=== PATIENT | male | born 1940 | race Caucasian/White ===

== ENCOUNTER 2016-10-15 06:17 | Day surgery (SDC) | payer OTHER ==
--- NOTE | 2016-10-15 06:24 | PDHPUP ---
History & Physical Update H&P update statement: This history and physical update is based on an assessment of the patient which was completed after admission or registration (within 24 hours), but prior to the surgery/procedure.
[2016-10-15] MEDS ORDERED: ceFAZolin 2 GM/DEXTROSE 100 ML IV ONE (07:22)
[2016-10-15] MEDS ORDERED: LIDOCAINE 1% 2 ML INJ ID PRN (07:24)
[2016-10-15] MEDS ORDERED: LR 1,000 ML IV ONE (07:24)
[2016-10-15] MEDS ORDERED: BUPIVACAINE/EPI 0.5% 30 ML SDV ONE (07:29)
[2016-10-15] MEDS ORDERED: fentaNYL 100 MCG/2 ML INJ IVP SCH (07:45)
[2016-10-15] MEDS ORDERED: ROPIVACAINE HCL 150 MG/30 ML INJ ONE (07:54)
--- NOTE | 2016-10-15 08:09 | PDANEPAE ---
ANE History of Present Illness 76 year old male with shoulder OA and RCT for R shoulder surgery. ANE Past Medical History Past Medical History: 76 yo male with no recent URI/cough/fever. Chronic SOB due to COPD. Stable per pt. - Cardiovascular History Hx Hypertension: Yes Hx Arrhythmias: No Hx Chest Pain: No Hx Coronary Artery / Peripheral Vascular Disease: Yes Hx CHF / Valvular Disease: No Hx Palpitations: No Cardiovascular History Comment: HYPERLIPIDEMIA - Pulmonary History Hx COPD: Yes Hx Asthma/Reactive Airway Disease: No Hx Recent Upper Respiratory Infection: No Hx Oxygen in Use at Home: Yes O2 in Use at Home (L/minute): NOC O2 Hx Sleep Apnea: Yes Sleep Apnea Screening Result - Last Documented: Positive Pulmonary History Comment: PULMONARY HTN. 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 ENDOSCOPY & COLONOSCOPY. APPENDECTOMY. CHOLECYSTECTOMY. R HEMICOLECTOMY. OPEN HERNIA REPAIR 2013. TWISTED BOWEL REPAIR. 2016 L HAND SURG ANE Review of Systems Review of Systems: No URI/fever x2 weeks. - Exercise capacity METS (RN): 3 METS - Systems Constitutional: Reports: no symptoms Cardiac: Reports: no symptoms Respiratory: Reports: cough, shortness of breath ANE Patient History - Allergies Allergies/Adverse Reactions: gabapentin Allergy (Verified 09/17/16 13:52) - Home Medications Home medications: home medication list seen and reviewed Home Medications: ALBUTEROL SULFATE 03/21/15 [Last Taken 10/14/16 08:00] Acidophilus 03/21/15 [Last Taken 10/14/16] Ambien 5MG (RX) 03/21/15 [Last Taken 10/14/16 21:00] Doxazosin Mesylate 03/21/15 [Last Taken 10/14/16 21:00] Hydrochlorothiazide 03/21/15 [Last Taken 10/14/16 08:00] Lisinopril 03/21/15 [Last Taken 10/15/16 04:30] Magnesium 03/21/15 [Last Taken 10/14/16 21:00] Metoprolol Succinate 03/21/15 [Last Taken 10/15/16 04:30] Nexium 03/21/15 [Last Taken 10/14/16 08:00] Proctozone 03/21/15 [Last Taken 7 Months Ago] Vitamin C 500 mg (OTC) 03/21/15 [Last Taken 10/14/16 08:00] Vitamin D3 (OTC) 03/21/15 [Last Taken 10/14/16 08:00] Zantac 03/21/15 [Last Taken 10/14/16 21:00] Zocor 03/21/15 [Last Taken 10/14/16 21:00] Advair Hfa 115-21 Mcg Inhaler 09/17/16 [Last Taken 10/15/16 04:30] Alrex 09/17/16 [Last Taken 10/14/16 08:00] Aspirin 09/17/16 [Last Taken 10/05/16] Herbals/Supplements -Info Only 09/17/16 [Last Taken 10/14/16 08:00] Sildenafil Citrate 09/17/16 [Last Taken 10/14/16 21:00] Voltaren Gel (*) 09/17/16 [Last Taken 10/14/16 08:00] - NPO status NPO Since - Liquids (Date): 10/15/16 NPO Since - Liquids (Time): 04:30 NPO Since - Solids (Date): 10/14/16 NPO Since - Solids (Time): 19:00 - Anes Hx Anes Hx: no prior problems - Smoking Hx Smoking Status: Former smoker Marijuana use: No - Alcohol Use Alcohol Use: Rarely - Family Anes Hx Family Anes Hx: neg - N/A Family Hx Anesthesia Complications: NEG ANE Labs/Vital Signs - Labs - CBC WBC: reviewed from earlier in September, WNL - Labs - BMP Sodium: reviewed from earlier in September, WNL - Vital Signs Blood Pressure: 128/52 Heart Rate: 65 Respiratory Rate: 20 O2 Sat (%): 90 Height: 175.26 cm Weight: 93.894 kg ANE Physical Exam - Airway Mallampati Score: Class 2 Mouth exam: normal dental/mouth exam - Pulmonary Pulmonary: rhonchi - Cardiovascular Cardiovascular: regular rate and rhythym (muffled) - ASA Status ASA Status: III ANE Anesthesia Plan Anesthesia Plan: GA w LMA Regional Anesthesia: interscalene BP NB
[2016-10-15] MEDS ORDERED: PROPOFOL/EMULSION 500 MG/50 ML BOTTLE IV ONE (08:45)
[2016-10-15] MEDS ORDERED: LIDOCAINE 2% 5 ML SDV ONE (08:45)
[2016-10-15] MEDS ORDERED: DEXAMETHASONE 4 MG/ML VIAL ONE ×2 (08:45)
[2016-10-15] MEDS ORDERED: ACETAMINOPHEN 500 MG TAB PO PRN (10:10)
[2016-10-15] MEDS ORDERED: ENALAPRILAT DIHYDRATE 1.25 MG/ML VIAL IVP PRN (10:10)
[2016-10-15] MEDS ORDERED: OXYCODONE/APAP 5/325 TAB PO PRN ×2 (10:10→10:18)
[2016-10-15] MEDS ORDERED: PROMETHAZINE HCL 25 MG/ML INJ IVP PRN (10:10)
[2016-10-15] MEDS ORDERED: ONDANSETRON 4 MG/2 ML VIAL IVP PRN ×2 (10:10→10:18)
[2016-10-15] MEDS ORDERED: fentaNYL 100 MCG/2 ML INJ IVP PRN (10:10)
[2016-10-15] MEDS ORDERED: NALOXONE HCL 0.4 MG/ML INJ IVP PRN ×2 (10:10→10:12)
[2016-10-15] MEDS ORDERED: ALBUTEROL 3 ML DEYVIAL IH PRN (10:10)
[2016-10-15] MEDS ORDERED: ONDANSETRON DISINTEGRATING 4 MG TAB PO PRN (10:18)
[2016-10-15 10:49] VITALS: PULSE 63
[2016-10-15 11:23] VITALS: RESP 15
--- NOTE | 2016-10-15 11:27 | POSTANESTH ---
Post Anesthetic Evaluation Cardiovascular Status: Normal, Stable Respiratory Status: Normal, Stable Level of Consciousness/Mental Status: Can Participate in Eval, Alert and Oriented Pain Control: Adequate, Prn Tx Ordered (R UE numb from ISB) Nausea/Vomiting Control: Adequate, Prn Tx Ordered Complications Possibly Related to Anesthesia: None Noted
[2016-10-15 11:45] VITALS: TEMP 97.9
[2016-10-15 13:54] VITALS: BP 155/62; O2SAT 92
--- NOTE | 2016-10-21 10:14 | GOP ---
[f rep st] OPERATIVE REPORT DATE OF OPERATION: 10/15/2016 SURGEON: Oj Mullen MD BIOPHYSICS SCIENTIST: Roshan Reynoso, PLASTER MOLDER, HOSIERY REPAIRER, bindery library technical assistant, who was a medical necessity for the entir ety of the case. PREOPERATIVE DIAGNOSIS: Right shoulder rotator cuff tear and impingement. POSTOPERATIVE DIAGNOSIS: Right shoulder rotator cuff tear and impingement. PROCEDURE PERFORMED: 1. Right shoulder arthroscopy with rotator cuff repair. 2. Arthroscopic subacromial decompression. 3. Arthroscopic limited labral debridement. FINDINGS: SPECIMENS: To Pathology, none. INDICATIONS: The patient is a 76-year-old gentleman who has persistent pain, limitation in his func tion secondary to rotator cuff tearing and impingement. He has failed all attempts at conservative management. I have, therefore, recommended operative intervention with rotator cuff repair, subacro mial decompression, labral debridement, and other procedures as indicated. He understood the risks, benefits, alternatives, and wished to proceed. Written consent was signed and placed in patient's chart. DESCRIPTION OF PROCEDURE: The patient was identified in the preanesthesia area. The right shoulder clearly demarcated as the operative site with indelible marker. He was given 2 g of Ancef intraven ously en route to the operative suite. In the OR, general endotracheal anesthesia was administered. Attention was turned to the right shoulder which was sterilely prepped and draped in the usual fas hion. Appropriate time-out procedure had been carried out. He had been given an interscalene block by Anesthesia for postoperative analgesia. Standard anterior, posterior and lateral incisions were made for the arthroscopic portals to the shoulder and diagnostic arthroscopy ensued. The articular surface of the glenoid demonstrated grade 1 softening. The humeral head was intact with several sm all areas of grade 2 chondral changes. The labrum was grossly frayed throughout and was debrided in a limited fashion. The biceps was still stable and anchored to the superior labrum. This was debr ided in a limited fashion as well. The inferior axillary recess was free of any loose or foreign de bris. The rotator cuff demonstrated a 2 cm anterior-posterior and medial-lateral width tear across the distal anterior supraspinatus and the upper subscapularis demonstrated partial thickness fraying . The subscapularis was debrided. The supraspinatus was tagged with a #1 PDS suture. The [facility] was then introduced into a subacromial position. Complete bursectomy was performed. There was marked impingement and a subacromial decompression was performed with an oscillating bur. The rotat or cuff was cleaned to a clean and stable edge. A bony footprint was created using a total of 2 Bio -SwiveLock anchors, a FiberLink, 2 FiberTapes. The rotator cuff was repaired to the bony footprint and secured. This was visualized with full internal, external rotation. All particulate debris was withdrawn. The portal sites were then closed using 4-0 nylon suture. The shoulder instilled with 20 cc of 0.5% Marcaine with epinephrine. A sterile compressive dressing was applied. The patient w as awakened, extubated, taken to recovery room in good, stable condition. TOTAL TOURNIQUET TIME: None. COMPLICATIONS: None. IMPLANTS: Two Bio-SwiveLock anchors and sutures as above. DISPOSITION: To the recovery room, then home. He will follow standard rotator cuff recovery. /[id number]/MODL
== END 2016-10-15 13:30 | disposition home or self-care (01) ==
LOC: FSGY 06:17 → UNDOADMIN 10:18 → FSGY 13:30
PROVIDERS: ATTEND Orthopaedic Surgery
PROC: 0LQ14ZZ Repair Right Shoulder Tendon, Percutaneous Endoscopic Approach (ICD-10-PCS; principal; 2016-10-15 08:30)
PROC: 0MN14ZZ Release Right Shoulder Bursa and Ligament, Percutaneous Endoscopic Approach (ICD-10-PCS; principal; 2016-10-15 08:30)
PROC: 0MB14ZZ Excision of Right Shoulder Bursa and Ligament, Percutaneous Endoscopic Approach (ICD-10-PCS; principal; 2016-10-15 08:30)
DX: M75.121 Complete rotator cuff tear or rupture of right shoulder, not specified as traumatic (principal); M19.011 Primary osteoarthritis, right shoulder; J44.9 Chronic obstructive pulmonary disease, unspecified; I10 Essential (primary) hypertension; K21.9 Gastro-esophageal reflux disease without esophagitis; G47.30 Sleep apnea, unspecified; I27.2 Other secondary pulmonary hypertension; E66.8 Other obesity; Z87.891 Personal history of nicotine dependence
CPT/HCPCS: C1713; J0171; J0690; J1100; J2704; J2795; J3010

== ENCOUNTER 2017-02-19 10:59 | Emergency (ER) | payer OTHER ==
--- NOTE | 2017-02-19 11:26 | CPEKG ---
Heart Rate: 79 RR Interval: 759 P-R Interval: 164 QRSD Interval: 142 QT Interval: 428 QTC Interval: 491 P [place]: 70 QRS [place]: 23 T Wave [place]: 106 EKG Severity - ABNORMAL ECG - EKG Impression: SINUS RHYTHM EKG Impression: LEFT BUNDLE BRANCH BLOCK Electronically Signed By: Keena Mehta 19-Feb-2017 14:37:43
--- NOTE | 2017-02-19 11:33 | EDPHY ---
H & P Time Seen by Provider: 02/19/17 11:16 HPI/ROS: CHIEF COMPLAINT: Dizziness HISTORY OF PRESENT ILLNESS: 76-year-old male presents with dizziness. 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 Since the procedure, he has been dizzy. The dizziness is described as feeling off balance with ambulation. He stopped taking the new medications prescribed, including Tylenol with codeine and sucralfate. However he continues to be dizzy. He has a history of vertigo, but this does not feel similar. He has no room spinning sensation and does not feel like he might faint. No recent head or neck trauma. No chest pain, shortness of breath or palpitations. REVIEW OF SYSTEMS: Constitutional: No fever, no chills Eyes: No visual changes ENT: No sore throat Respiratory: No cough, no shortness of breath Cardiac: No chest pain Gastrointestinal: No nausea, no vomiting, no abdominal pain Genitourinary: no dysuria Musculoskeletal: No leg pain or swelling Skin: No rash Neurological: No headache, no numbness, no weakness Psychiatric: No depression Past Medical/Surgical History: Jackson's esophagus COPD Hypertension TIA Social History: No recent alcohol Smoking Status: Former smoker Physical Exam: General Appearance: Alert, pleasant Eyes: Pupils equal and round, no conjunctival pallor or injection a few beats of horizontal nystagmus with leftward gaze ENT, Mouth: Mucous membranes moist Neck: Normal inspection Respiratory: Lungs are clear to auscultation Cardiovascular: Regular rate and rhythm Gastrointestinal: Abdomen is soft and nontender Neurological: Alert, oriented x3, cranial nerves II through XII intact, motor 5 /5, sensory intact to light touch, finger to nose testing normal Skin: Warm and dry Extremities: Nontender, no pedal edema Psychiatric: Mood and affect normal Constitutional: Initial Vital Signs Temperature (C) 36.3 C 02/19/17 11:06 Heart Rate 84 02/19/17 11:06 Respiratory Rate 18 02/19/17 11:06 Blood Pressure 140/52 H 02/19/17 11:06 O2 Sat (%) 93 02/19/17 11:06 O2 Delivery Mode Room Air Allergies/Adverse Reactions: gabapentin Allergy (Verified 02/19/17 11:04) shellfish derived Allergy (Verified 02/19/17 11:04) Home Medications: Medication Instructions Recorded ALBUTEROL SULFATE 03/21/15 Acidophilus 03/21/15 Ambien 5MG (RX) 03/21/15 Doxazosin Mesylate 03/21/15 Hydrochlorothiazide 03/21/15 Lisinopril 03/21/15 Magnesium 03/21/15 Metoprolol Succinate 03/21/15 Nexium 03/21/15 Proctozone 03/21/15 Vitamin C 500 mg (OTC) 03/21/15 Vitamin D3 (OTC) 03/21/15 Zantac 03/21/15 Zocor 03/21/15 Advair Hfa 115-21 Mcg Inhaler 09/17/16 Alrex 09/17/16 Aspirin 09/17/16 Herbals/Supplements -Info Only 09/17/16 Sildenafil Citrate 09/17/16 Voltaren Gel (*) 09/17/16 Sucralfate 02/19/17 Medical Decision Making - Diagnostics EKG Interpretation: EKG interpreted by me reveals normal sinus rhythm, rate of 89, left bundle branch block. Imaging Results: Head CT 02/19/17 11:34 Impression: 1. Minimal atrophy. 2. No acute hemorrhage, hydrocephalus, or mass effect. 3. Cerebrovascular atherosclerosis. 4. No definite acute infarct. 5. Consider MRI of the brain, if there is continued clinical concern. Findings and recommendations discussed with Emergency Department physician, REINA WARD at 12:11 hour, 02/19/2017. Final report concurs with initial preliminary interpretation. Chest X-Ray 02/19/17 11:35 Impression: 1. Hyperexpanded lungs compatible with underlying COPD. 2. Stable fibrotic changes at the left base. ED Course/Re-evaluation: This pt presents with a vague sense of dizziness. He has no room spinning sensation and no evidence of peripheral or central vertigo on exam. His neurologic exam is normal and CT scan reveals no evidence of infarct. I doubt that he has had an acute CVA, given lack of vertigo and normal neurologic exam. In addition, there is no evidence of cardiac dysrhythmia; EKG reveals normal sinus rhythm. The dizziness may be secondary to new medications, including Tylenol with codeine. He is not in pain so will not take Tylenol with codeine. Labs normal, no evidence of severe anemia or electrolyte disorder. Able to walk independently with a steady gait. CT scans results discussed with the patient. He declines admission and wants to go home. He will follow up with his primary care physician. Differential Diagnosis: Dizziness including but not limited to peripheral and central causes of vertigo , orthostatic causes including dehydration, and blood loss. - Data Points Laboratory Results: Laboratory Results 02/19/17 11:38 02/19/17 11:38 Departure - Departure Disposition: Home, Routine, Self-Care Clinical Impression: Dizziness Condition: Good Instructions: Dizziness (ED) Additional Instructions: Return for worsening symptoms or any concerns. Referrals: Esequiel Marrero MD [Primary Care Provider] - As per Instructions
[2017-02-19 11:50] LABS: % IMMATURE GRANULYOCYTES 0.6 % (0.0-1.1); ABSOLUTE IMMATURE GRANULOCYTES 0.04 10^3/uL (0.00-0.10); ADD DIFF? NO; ADD MORPH? NO; ADD SCAN? NO; ATYPICAL LYMPHOCYTE FLAG 50 (0-99); FRAGMENT RBC FLAG 0 (0-99); HEMATOCRIT 42.7 % (40.0-51.0); HEMOGLOBIN 15.3 g/dL (13.7-17.5); LEFT SHIFT FLG 0 (0-99); LIPEMIA HEMOLYSIS FLAG 90 (0-99); MEAN CELL HEMOGLOBIN 29.9 pg (27.9-34.1); MEAN CELL HEMOGLOBIN CONCENTR. 35.8 g/dL (32.4-36.7); MEAN CELL VOLUME 83.6 fL (81.5-99.8); MEAN PLATELET VOLUME 9.9 fL (8.7-11.7); PLATELET CLUMPS FLAG 0 (0-99); PLATELET COUNT 195 10^3/uL (150-400); RED BLOOD CELL COUNT 5.11 10^6/uL (4.40-6.38); RED CELL DISTRIBUTION WIDTH 14.6 % (11.5-15.2)
[2017-02-19 12:04] LABS: ANION GAP 16 mEq/L (8-16); CALCIUM 9.4 mg/dL (8.5-10.4); CARBON DIOXIDE 19 mEq/l (22-31); CHLORIDE 107 mEq/L (97-110); CREATININE 0.9 mg/dL (0.7-1.3); GLOMERULAR FILTRATION RATE > 60; GLUCOSE 107 mg/dL (70-100); SODIUM 142 mEq/L (134-144)
[2017-02-19 12:15] LABS: TROPONIN I < 0.012 ng/mL (0.000-0.034)
[2017-02-19 12:27] VITALS: RESP 16
[2017-02-19 13:39] VITALS: BP 135/82; PULSE 78; TEMP 98.6; O2SAT 98
== END 2017-02-19 13:39 | disposition home or self-care (01) ==
DX: R42 Dizziness and giddiness (principal); I10 Essential (primary) hypertension; J44.9 Chronic obstructive pulmonary disease, unspecified; Z79.82 Long term (current) use of aspirin; Z87.891 Personal history of nicotine dependence

== ENCOUNTER → 2017-05-23 | Outpatient (CLI) | payer OTHER | LOC: FIMAGING 11:47 | PROVIDERS: ATTEND Physician Assistant | DX: M17.11 Unilateral primary osteoarthritis, right knee (principal); I73.9 Peripheral vascular disease, unspecified ==

== ENCOUNTER 2017-06-10 08:49 | Observation (INO) | payer OTHER ==
--- NOTE | 2017-06-10 06:50 | PDHPUP ---
History & Physical Update H&P update statement: This history and physical update is based on an assessment of the patient which was completed after admission or registration (within 24 hours), but prior to the surgery/procedure. H&P update: no change in patient's condition since H&P completed
--- NOTE | 2017-06-10 06:51 | PDIAF ---
- Diagnosis Diagnosis: right knee djd - Medication Management Discharge Medications: Medications to Continue on Transfer Albuterol [Proventil Inhaler HFA (*)] 1 - 2 puffs IH Q4H PRN #0 03/21/15 [Last Taken 10/14/16 08:00] Ascorbic Acid [Vitamin C 500 mg (*)] 2,000 mg PO DAILY #0 03/21/15 [Last Taken 10/14/16 08:00] Doxazosin Mesylate 2 mg PO HS #0 03/21/15 [Last Taken 10/14/16 21:00] Herbals/Supplements -Info Only 1 ea PO DAILY #0 03/21/15 [Last Taken 10/14/16 21 :00] Hydrochlorothiazide [HCTZ (*)] 25 mg PO DAILY #0 03/21/15 [Last Taken 10/14/16 08:00] Lisinopril [Zestril 10 mg (*)] 10 mg PO DAILY #0 03/21/15 [Last Taken 10/15/16 04:30] Metoprolol Succinate Xr [Toprol Xl 25 mg (*)] 12.5 mg PO DAILY #0 03/21/15 [ Last Taken 10/15/16 04:30] Simvastatin [Zocor] 20 mg PO HS #0 03/21/15 [Last Taken 10/14/16 21:00] Zolpidem Tartrate [Ambien 5MG (*)] 5 mg PO HS #0 03/21/15 [Last Taken 10/14/16 21:00] Aspirin [Aspirin 81mg (*)] 81 mg PO HS #0 09/17/16 [Last Taken 10/05/16] Fluticasone/Salmeter 250/50Mcg [Advair 250/50 (*)] 1 puffs IH DAILY #0 09/17/16 [Last Taken 10/15/16 04:30] Loteprednol Etabonate [Alrex] 1 drop OP DAILY PRN #0 09/17/16 [Last Taken 08:00] Finasteride [Proscar 5 MG (*)] 5 mg PO HS 05/20/17 [Last Taken Unknown] Melatonin/Pyridoxine HCl (B6) [Melatonin 10 mg Tablet] 1 each PO HS 05/20/17 [ Last Taken Unknown] Multivitamins [Multivitamin (*)] 1 each PO DAILY 05/20/17 [Last Taken Unknown] Pantoprazole Sodium [Protonix 40mg (*)] 40 mg PO BID 05/20/17 [Last Taken Unknown] Discharge Medications: Refer to the Discharge Home Medication list for PRN reason. - Orders Services needed: Physical Therapy Activity/Weight Bearing Restrictions: wbat. rom as hussein. griselda hose x 2 weeks. dressing changes. may shower without bandage. no soaking or immersion. follow up at two weeks [facility]. seek attn for increasing pain, cp, sob, leg swelling or pain, drainage - Follow Up Care Current Providers and Referrals: Esequiel Marrero MD [Primary Care Provider] -
[~2017-06-10 08:49] MED LIST: BUPI/epINEPH/KETOROLAC/morphINE IU ONE; NS IV ONE; ROPIVACAINE 0.2% 80 MG, EPINEPHrine 0.2 MG, KETOROLAC TROMETHAMINE 30 MG, morphINE 10 M... IU ONE; TRANEXAMIC ACID IV ONE
[2017-06-10] MEDS ORDERED: FAMOTIDINE 20 MG TAB PO ONE (09:22)
[2017-06-10] MEDS ORDERED: ceFAZolin 2 GM/SWFI 2 GM/20 ML SYR IVP ONE (09:22)
[2017-06-10] MEDS ORDERED: ACETAMINOPHEN 325 MG TAB PO ONE (09:22)
[2017-06-10] MEDS ORDERED: CALCIUM CHLORIDE 1 GM/10 ML INJ ONE (09:23)
[2017-06-10] MEDS ORDERED: LR 1,000 ML IV ONE (09:23)
[2017-06-10] MEDS ORDERED: THROMBIN (BOVINE) 5,000 UNIT VIAL TP ONE (09:23)
[2017-06-10] MEDS ORDERED: LIDOCAINE 1% 2 ML INJ ID PRN (09:23)
[2017-06-10] MEDS ORDERED: ceFAZolin 1 GM/5 ML SYR ONE (09:24)
--- NOTE | 2017-06-10 09:36 | PDANEPAE ---
ANE History of Present Illness 77 yo male with multiple medical problems for R TKA. ANE Past Medical History - Cardiovascular History Hx Hypertension: Yes Hx Arrhythmias: No Hx Chest Pain: No Hx Coronary Artery / Peripheral Vascular Disease: Yes Hx CHF / Valvular Disease: No Hx Palpitations: No Cardiovascular History Comment: pulmonary htn, htn. - Pulmonary History Hx COPD: Yes Hx Asthma/Reactive Airway Disease: No Hx Recent Upper Respiratory Infection: No Hx Oxygen in Use at Home: Yes O2 in Use at Home (L/minute): 2L at night Hx Sleep Apnea: Yes Sleep Apnea Screening Result - Last Documented: Positive Pulmonary History Comment: PULMONARY HTN. 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 squamus cell CA - Chronic Pain History Chronic Pain: No - Surgical History Prior Surgeries: ANGIOGRAM 2016. ENDOSCOPY & COLONOSCOPY. APPENDECTOMY. CHOLECYSTECTOMY. R HEMICOLECTOMY. L4/5 laminectomy. OPEN HERNIA REPAIR 2013. TWISTED BOWEL REPAIR. 2016 L HAND SURG,left shoulder surgery ANE Review of Systems Review of Systems: - Exercise capacity METS (RN): 5 METS - Systems Constitutional: Reports: no symptoms Cardiac: Reports: no symptoms Respiratory: Reports: no symptoms Muscolosketal: Reports: muscle pain, muscle stiffness, neck pain (tweaked his neck/shoulders over the weekend - still having quite a bit of muscular pain) ANE Patient History - Allergies Allergies/Adverse Reactions: gabapentin Allergy (Severe, Verified 05/27/17 10:43) Other-Enter Comments shellfish derived Allergy (Mild, Verified 05/27/17 10:43) Vomiting - Home Medications Home Medications: Albuterol [Proventil Inhaler HFA (*)] 1 - 2 puffs IH Q4H PRN #0 03/21/15 [Last Taken 06/10/17 07:00] Ascorbic Acid [Vitamin C 500 mg (*)] 2,000 mg PO DAILY #0 03/21/15 [Last Taken 06/02/17] Doxazosin Mesylate 2 mg PO HS #0 03/21/15 [Last Taken 06/09/17 21:30] Herbals/Supplements -Info Only 1 ea PO DAILY #0 03/21/15 [Last Taken 06/03/17] Hydrochlorothiazide [HCTZ (*)] 25 mg PO DAILY #0 03/21/15 [Last Taken 06/09/17 08:00] Lisinopril [Zestril 10 mg (*)] 10 mg PO DAILY #0 03/21/15 [Last Taken 06/09/17 08:00] Metoprolol Succinate Xr [Toprol Xl 25 mg (*)] 12.5 mg PO DAILY #0 03/21/15 [ Last Taken 06/10/17 06:00] Simvastatin [Zocor] 20 mg PO HS #0 03/21/15 [Last Taken 06/09/17 21:30] Zolpidem Tartrate [Ambien 5MG (*)] 5 mg PO HS #0 03/21/15 [Last Taken 06/09/17 09:30] Aspirin [Aspirin 81mg (*)] 81 mg PO HS #0 09/17/16 [Last Taken 06/03/17] Loteprednol Etabonate [Alrex] 1 drop OP DAILY PRN #0 09/17/16 [Last Taken ] Finasteride [Proscar 5 MG (*)] 5 mg PO HS 05/20/17 [Last Taken 06/09/17 21:30] Melatonin/Pyridoxine HCl (B6) [Melatonin 10 mg Tablet] 1 each PO HS 05/20/17 [ Last Taken 06/09/17 21:30] Multivitamins [Multivitamin (*)] 1 each PO DAILY 05/20/17 [Last Taken 06/03/17] Pantoprazole Sodium [Protonix 40mg (*)] 40 mg PO BID 05/20/17 [Last Taken 08:00] - NPO status NPO Status: no food or drink >8 hours - Anes Hx Anes Hx: slow to awaken from anesthesia Hx Anesthesia Complications (with details): post-op pulmonary and renal failure after 2013 surgery - Smoking Hx Smoking Status: Former smoker - Alcohol Use Alcohol Use: Rarely (1/month) - Family Anes Hx Family Anes Hx: neg - N/A Family Hx Anesthesia Complications: none ANE Labs/Vital Signs - Labs - CBC HGB: 15 HCT: 42 Platelet Count: 146 - Labs - BMP BUN: 14 Creatinine: 0.9 - Vital Signs Blood Pressure: 138/48 O2 Sat (%): 90 Height: 175.26 cm Weight: 92.533 kg ANE Physical Exam - Airway Neck exam: FROM Mallampati Score: Class 2 Mouth exam: normal dental/mouth exam - Pulmonary Pulmonary: clear to auscultation - Cardiovascular Cardiovascular: regular rate and rhythym - ASA Status ASA Status: III ANE Anesthesia Plan Anesthesia Plan: spinal Regional Anesthesia: adductor canal FNB
[2017-06-10] MEDS ORDERED: fentaNYL 100 MCG/2 ML INJ ONE ×2 (10:45→13:21)
[2017-06-10] MEDS ORDERED: LIDOCAINE 2% 5 ML SDV ONE (10:45)
[2017-06-10] MEDS ORDERED: DEXAMETHASONE 4 MG/ML VIAL ONE (10:45)
[2017-06-10] MEDS ORDERED: PROPOFOL/EMULSION 500 MG/50 ML BOTTLE IV ONE (10:46)
[2017-06-10] MEDS ORDERED: ROPIVACAINE HCL 150 MG/30 ML INJ ONE (11:48)
[2017-06-10] MEDS ORDERED: PROPOFOL 200 MG/20 ML VIAL ONE (11:53)
[2017-06-10] MEDS ORDERED: POLYETHYLENE GLYCOL 3350 17 GM PKT PO PRN (12:09)
[2017-06-10] MEDS ORDERED: LACTULOSE 20 GM/30 ML UDCUP PO PRN (12:09)
[2017-06-10] MEDS ORDERED: PROMETHAZINE HCL 25 MG SUPPR PR PRN (12:09)
[2017-06-10] MEDS ORDERED: ONDANSETRON 4 MG/2 ML VIAL IVP PRN ×2 (12:09→12:14)
[2017-06-10] MEDS ORDERED: ONDANSETRON DISINTEGRATING 4 MG TAB PO PRN (12:09)
[2017-06-10] MEDS ORDERED: BISACODYL 10 MG SUPP PR PRN (12:09)
[2017-06-10] MEDS ORDERED: TEMAZEPAM 15 MG CAP PO PRN (12:09)
[2017-06-10] MEDS ORDERED: METOCLOPRAMIDE 10 MG/2 ML VIAL IVP PRN (12:09)
[2017-06-10] MEDS ORDERED: diphenhydrAMINE 25 MG CAP PO PRN (12:09)
[2017-06-10] MEDS ORDERED: DIAZEPAM 5 MG TAB PO PRN (12:09)
[2017-06-10] MEDS ORDERED: PROMETHAZINE HCL 25 MG/ML INJ IVP PRN (12:09)
[2017-06-10] MEDS ORDERED: MAGNESIUM HYDROXIDE 30 ML UDCUP PO PRN (12:09)
[2017-06-10] MEDS ORDERED: DIPHENOXYLATE/ATROPINE LOMOTIL 1 TAB PO PRN (12:09)
[2017-06-10] MEDS ORDERED: LOTEPREDNOL ETABONATE EACHEYE PRN (12:11)
[2017-06-10] MEDS ORDERED: NALOXONE HCL 0.4 MG/ML INJ IVP PRN (12:14)
[2017-06-10] MEDS ORDERED: LABETALOL HCL 5 MG/ML 20 ML MDV IVP PRN (12:14)
[2017-06-10] MEDS ORDERED: ACETAMINOPHEN 500 MG TAB PO PRN (12:14)
[2017-06-10] MEDS ORDERED: LR 500 ML IV PRN (12:14)
[2017-06-10] MEDS ORDERED: fentaNYL 100 MCG/2 ML INJ IVP PRN (12:14)
[2017-06-10] MEDS ORDERED: DIAZEPAM 5 MG/ML 1 ML SYR IVP PRN (12:14)
[2017-06-10] MEDS ORDERED: ALBUTEROL 3 ML DEYVIAL IH PRN (12:14)
[2017-06-10] MEDS ORDERED: TRANEXAMIC ACID 650 MG TAB PO SCH (12:15)
[2017-06-10] MEDS ORDERED: LR 1,000 ML IV SCH (12:30)
--- NOTE | 2017-06-10 12:45 | POSTANESTH ---
Post Anesthetic Evaluation Cardiovascular Status: Normal, Stable, Tx Over/Under Hydration Level of Consciousness/Mental Status: Can Participate in Eval, Alert and Oriented Pain Control: Adequate, Prn Tx Ordered Nausea/Vomiting Control: Adequate, Prn Tx Ordered Complications Possibly Related to Anesthesia: None Noted (R AC block placed with ultrasound guidance upon arrival in PACU. Pt's legs still insensate due to SAB, but pt is able to move feet bilaterally. See anesthesia record for details of block.)
[2017-06-10] MEDS: ceFAZolin 2 GM/SWFI 2 GM/20 ML SYR IVP SCH ×2 (16:20→21:04)
[2017-06-10] MEDS: oxyCODONE IR 5 MG TAB PO PRN (17:36)
[2017-06-10] MEDS: ACETAMINOPHEN 325 MG TAB PO SCH (17:36)
[2017-06-10 20:03] VITALS: RESP 16; O2SAT 93
[2017-06-10] MEDS ORDERED: FINASTERIDE 5 MG TAB PO SCH (21:00)
[2017-06-10] MEDS ORDERED: ATORVASTATIN CALCIUM 10 MG TAB PO SCH (21:00)
[2017-06-10] MEDS: SENNOSIDES/DOCUSATE SODIUM TAB PO SCH (21:03)
[2017-06-10] MEDS: PANTOPRAZOLE SODIUM 40 MG TAB PO SCH (21:03)
[2017-06-10] MEDS: ASPIRIN 325 MG TAB PO SCH (21:03)
[2017-06-10] MEDS: FAMOTIDINE 20 MG TAB PO SCH (21:03)
[2017-06-10] MEDS: TRANEXAMIC ACID 650 MG TAB PO SCH (21:03)
[2017-06-11] MEDS: ACETAMINOPHEN 325 MG TAB PO SCH ×3 (00:33→11:42)
[2017-06-11] MEDS: oxyCODONE IR 5 MG TAB PO PRN ×3 (03:11→12:30)
[2017-06-11] MEDS: TRANEXAMIC ACID 650 MG TAB PO SCH ×2 (03:11→11:42)
--- NOTE | 2017-06-11 07:10 | SOAPPROG ---
SOAP Progress Note Assessment/Plan: Assessment: s/p tka Plan:d/c home dvt precautions f/u two weeks 06/11/17 07:09 Subjective: mild pain no cp or sob Objective: Vital Signs Temp Pulse Resp BP Pulse Ox 36.3 C 56 L 16 125/56 H 93 06/11/17 03:06 06/11/17 03:06 06/11/17 03:06 06/11/17 03:06 06/11/17 03:06 Laboratory Results 06/11/17 04:11 06/10/17 06/11/17 06/12/17 05:59 05:59 05:59 Intake Total 2810 788 Output Total 455 300 Balance 2355 488 dressing intact intact pf,df,ehl toes warm and pink neg homans lashonda xrays stable no fx or lucency ICD10 Worksheet Patient Problems: Problems Problem Status Onset Acute coronary syndrome Acute
--- NOTE | 2017-06-11 07:12 | PDIAF ---
- Diagnosis Diagnosis: right knee djd Code Status: Full Code - Medication Management Discharge Medications: Medications to Continue on Transfer Albuterol [Proventil Inhaler HFA (*)] 1 - 2 puffs IH Q4H PRN #0 03/21/15 [Last Taken 06/10/17 07:00] Ascorbic Acid [Vitamin C 500 mg (*)] 2,000 mg PO DAILY #0 03/21/15 [Last Taken 06/02/17] Doxazosin Mesylate 2 mg PO HS #0 03/21/15 [Last Taken 06/09/17 21:30] Herbals/Supplements -Info Only 1 ea PO DAILY #0 03/21/15 [Last Taken 06/03/17] Hydrochlorothiazide [HCTZ (*)] 25 mg PO DAILY #0 03/21/15 [Last Taken 06/09/17 08:00] Lisinopril [Zestril 10 mg (*)] 10 mg PO DAILY #0 03/21/15 [Last Taken 06/09/17 08:00] Metoprolol Succinate Xr [Toprol Xl 25 mg (*)] 12.5 mg PO DAILY #0 03/21/15 [ Last Taken 06/10/17 06:00] Simvastatin [Zocor] 20 mg PO HS #0 03/21/15 [Last Taken 06/09/17 21:30] Zolpidem Tartrate [Ambien 5MG (*)] 5 mg PO HS #0 03/21/15 [Last Taken 06/09/17 09:30] Aspirin [Aspirin 81mg (*)] 81 mg PO HS #0 09/17/16 [Last Taken 06/03/17] Loteprednol Etabonate [Alrex] 1 drop OP DAILY PRN #0 09/17/16 [Last Taken ] Finasteride [Proscar 5 MG (*)] 5 mg PO HS 05/20/17 [Last Taken 06/09/17 21:30] Melatonin/Pyridoxine HCl (B6) [Melatonin 10 mg Tablet] 1 each PO HS 05/20/17 [ Last Taken 06/09/17 21:30] Multivitamins [Multivitamin (*)] 1 each PO DAILY 05/20/17 [Last Taken 06/03/17] Pantoprazole Sodium [Protonix 40mg (*)] 40 mg PO BID 05/20/17 [Last Taken 08:00] Fluticasone/Salmeter 250/50Mcg [Advair 250/50 (*)] 1 puffs IH BID 06/10/17 [ Last Taken 06/10/17 09:00] Aspirin [Aspirin 325 mg (*)] 325 mg PO DAILY tab 06/11/17 [Last Taken Unknown] Diazepam [Valium 5 MG (*)] 5 mg PO Q6HRS PRN #20 tab 06/11/17 [Last Taken Unknown] oxyCODONE IR [Oxycodone Ir (*)] 5 - 10 mg PO Q3HRS PRN #70 tab 06/11/17 [Last Taken Unknown] Discharge Medications: Refer to the Discharge Home Medication list for PRN reason. - Orders Services needed: Physical Therapy Diet Recommendation: no restrictions on diet Diet Texture: Regular Texture Diet Activity/Weight Bearing Restrictions: wbat. rom as hussein. griselda hose x 2 weeks. dressing changes. may shower without bandage. no soaking or immersion. follow up at two weeks [facility]. seek attn for increasing pain, cp, sob, leg swelling or pain, drainage - Follow Up Care Current Providers and Referrals: Esequiel Marrero MD [Primary Care Provider] - Oj Mullen MD [Medical Doctor] -
--- NOTE | 2017-06-11 07:36 | GDS ---
[f rep st] DISCHARGE SUMMARY ADMIT DIAGNOSIS: Right knee degenerative joint disease. DISCHARGE DIAGNOSIS: Right knee degenerative joint disease. PROCEDURE: Right total knee arthroplasty-MAKOplasty. HISTORY OF PRESENT ILLNESS: The patient is a 77-year-old gentleman with end-stage arthritis to his r ight knee who has failed attempts at conservative management. I have recommended operative intervent ion with total knee replacement. HOSPITAL COURSE: He was admitted overnight after uncomplicated total knee arthroplasty, tolerated pr ocedure well. Postop course was uneventful. At the time of discharge, he is tolerating an oral diet . Pain was well controlled on oral medicines. He is voiding without difficulty. His dressing is cl steve, dry, and intact. He has negative Devan's bilaterally. X-rays are stable with anatomic alignmen t. Serial hematocrit is stable. DISCHARGE ACTIVITY: Weightbearing as tolerated. Range of motion as tolerated. Dressing changes as per protocol. ANTONIA vera for 2 weeks. FOLLOWUP: Two weeks. DISCHARGE MEDICATIONS: Aspirin 325 mg p.o. daily and oxycodone 5 mg 1-2 every 6 hours p.r.n. pain. /[id number]/MODL
[2017-06-11] MEDS: SENNOSIDES/DOCUSATE SODIUM TAB PO SCH (07:53)
[2017-06-11] MEDS: PANTOPRAZOLE SODIUM 40 MG TAB PO SCH (07:54)
[2017-06-11] MEDS: ASPIRIN 325 MG TAB PO SCH (07:54)
[2017-06-11] MEDS: FAMOTIDINE 20 MG TAB PO SCH (07:54)
[2017-06-11 07:58] VITALS: BP 129/70
[2017-06-11] MEDS: METOPROLOL SUCCINATE XR 25 MG TAB PO SCH ×2 (08:00→09:26)
[2017-06-11] MEDS ORDERED: ALBUTEROL 60 PUFFS/8 GM MDI IH PRN (08:02)
[2017-06-11 08:23] VITALS: TEMP 97
[2017-06-11 08:40] VITALS: PULSE 76
[2017-06-11] MEDS ORDERED: LISINOPRIL 10 MG TAB PO SCH (09:00)
[2017-06-11] MEDS ORDERED: FLUTICASONE/SALMETER 250/50MCG DISKUS IH SCH ×2 (09:00)
[2017-06-11] MEDS ORDERED: HYDROCHLOROTHIAZIDE 25 MG TAB PO SCH (09:00)
--- NOTE | 2017-06-11 11:42 | ASMTCMCOM ---
CM Note CM Note Notes: Pt medically stable for d/c with [facility]. Orders sent in [employer]. Pt address/phone verified. Date Signed: 06/11/2017 11:41 AM Electronically Signed By:JOHN Rojas
--- NOTE | 2017-06-11 13:56 | ASDISCHSUM ---
Discharge Information Plan Status:Home with Home Health Medically Cleared to Leave: Discharge Date:06/11/2017 01:27 PM CM D/C Disposition:Home Health Service ADT D/C Disposition:Home Health Service Projected Discharge Date:06/11/2017 11:00 AM Transportation at D/C:Family Discharge Delay Reason: Follow-Up Date:06/11/2017 11:00 AM Discharge Slot: Final Diagnosis: Placement Information Referral Type:*Home Health Care Services Ref[facility] ID:[id number] Provider Name:[facility] Address 1:[address] [facility] Phone Number: Address 2: Fax Number: City:[place] Selection Factors: State:[place] Patient Contact Information Contact Name:YONATAN Relationship: Address:[address] [facility] City:[place] Alternate Phone: State/Zip Code:[place] [address] Email: Financial Information Financial Class:Medicare Primary Plan Desc:MEDICARE OUTPATIENT Primary Plan Number:[id number] Secondary Plan Desc:[facility] Secondary Plan Number:[id number] Assessment Information [facility] CM Progress Note CM Note CM Note Notes: Pt medically stable for d/c with [facility]. [facility]. Pt address/phone verified. Date Signed: 06/11/2017 11:41 AM Electronically Signed By:JOHN Rojas Intervention Information Intervention Type:*Incorrect Registration Date of Service:06/10/2017 12:46 PM Patient Type:Inpatient Staff Member:MARIAN Wise Courtney Hours: Discipline: Severity: Comment:
--- NOTE | 2017-06-13 07:36 | GOP ---
[f rep st] OPERATIVE REPORT DATE OF OPERATION: 06/10/2017 SURGEON: Oj Mullen MD RESTAURANT RECRUITER: Roshan Reynoso, ANODIC TREATER, STUNT PERFORMER, surgical elastic knitter hand frame, who was a medical necessity for the entire ty of the case. Also present is BERNARDO Alarcon. PREOPERATIVE DIAGNOSIS: Right knee degenerative joint disease. POSTOPERATIVE DIAGNOSIS: Right knee degenerative joint disease. PROCEDURE PERFORMED: Total knee arthroplasty, MAKOplasty. FINDINGS: INDICATIONS: The patient is a 77-year-old gentleman who has end-stage arthritis to his right knee. Clinical and radiographic features are consistent with this. He has failed all attempts at conservat ani management. I have therefore recommended total knee replacement. He understood the risks, benef its, alternatives, and wished to proceed. Written consent was signed and placed in patient's chart. DESCRIPTION OF PROCEDURE: The patient was identified in the preanesthesia area. The right knee aleyda rly demarcated as operative site with indelible marker. He was given 2 g of Ancef intravenously en r oute to the operative suite. In the OR a spinal anesthetic was placed followed by sedation. He was positioned in the supine position. Attention was turned to the right knee which was sterilely preppe d and draped in usual fashion. A tourniquet was applied to the upper thigh. The limb was then steri daniela prepped and draped in the usual fashion. Appropriate time-out procedure was carried out. The l imb was exsanguinated with Esmarch bandage. Tourniquet inflated to 275 mmHg. Standard anterior midl ine incision was made. Thick subcutaneous flaps were elevated followed by medial parapatellar arthro guanaco. Subperiosteal dissection was carried out to the mid coronal plane. Retractors were placed, pr otecting the mediolateral collateral structures. The knee demonstrated tricompartmental arthritis. Two pins were then placed in the wound across the medial epicondyle and the femoral reference array w as affixed. The femoral check point was placed in this area as well. A separate percutaneous incisi on was made across the distal mid tibia and 2 pins were placed. The tibial reference array affixed a nd tibial check point was placed across the proximal tibial plateau. The bony landmarks of the knee were entered into the computer in standard fashion. The knee was evaluated in both flexion and exten vignesh and balanced with appropriate implant positioning and soft tissue release. Using the MAKOplasty robot protocol resections were made for a size 4 femur, size 5 tibia. The box cut in the trochlea w as made with an oscillating saw and trial reduction carried out over a 5 x 11 mm thick polyethylene. This allowed full flexion and extension of the knee without instability through the flexion-extensio n arc. The patella was then everted and cut in a freehand cutting technique. Drill holes were made for a size 35 mm patella. All trial implants were withdrawn. The surfaces were thoroughly cleansed. A press-fit technique the tibial, femoral and patellar inserts were then pressed into place. A siz e 5 x 11 mm polyethylene spacer was then carefully placed across the tibial tray and impacted, confir med to be fully seated. The knee was taken through full range of motion, was stable and appropriate as above. The wound was irrigated copiously. The soft tissue injected with a joint cocktail of ropi vacaine, morphine, Toradol, and epinephrine. The medial parapatellar arthrotomy closed using #1 Ethi long suture and the knee instilled with a platelet-rich plasma cocktail. The subcutaneous tissue franklin sed using 2-0 Quill, the skin stapled, a sterile dressing was applied. The patient was awakened, ext ubated, taken to the recovery room in good stable condition. TOTAL TOURNIQUET TIME: One hour. COMPLICATIONS: None. SPECIMENS TO PATHOLOGY: None. IMPLANTS: [place] Triathlon PS femoral component size 4, size 5 tibial component, 5 x 11 mm tibial b earing insert, and 35 mm asymmetric patella. /[id number]/MODL
== END 2017-06-11 13:27 | disposition home health service (06) ==
LOC: OBSVTOIN 08:49 → F3N 08:49 → INTOOBSV 08:49 → F3N 13:55
PROVIDERS: ADMIT Orthopaedic Surgery; ATTEND Orthopaedic Surgery
PROC: 8E0YXBZ Computer Assisted Procedure of Lower Extremity (ICD-10-PCS; principal; 2017-06-10 10:30)
PROC: 0SRC0JZ Replacement of Right Knee Joint with Synthetic Substitute, Open Approach (ICD-10-PCS; principal; 2017-06-10 10:30)
PROC: 3E0U3GC Introduction of Other Therapeutic Substance into Joints, Percutaneous Approach (ICD-10-PCS; principal; 2017-06-10 10:30)
DX: M17.11 Unilateral primary osteoarthritis, right knee (principal); I73.9 Peripheral vascular disease, unspecified; I10 Essential (primary) hypertension; E78.5 Hyperlipidemia, unspecified; K21.9 Gastro-esophageal reflux disease without esophagitis; I27.20 Pulmonary hypertension, unspecified; G47.33 Obstructive sleep apnea (adult) (pediatric); J44.9 Chronic obstructive pulmonary disease, unspecified; Z79.82 Long term (current) use of aspirin; Z86.73 Personal history of transient ischemic attack (TIA), and cerebral infarction without residual deficits; Z87.891 Personal history of nicotine dependence
CPT/HCPCS: 0232T; 20985; 27447; 73560; 88311; 97110; 97116; 97161; 97165; 97530; C1776; G8978; G8979; G8987; G8988; G8989; J0171; J0690; J1100; J1885; J2270; J2704; J2795; J3010

== ENCOUNTER → 2017-07-23 | Outpatient (CLI) | payer OTHER | LOC: BMCIMAGING 09:43 | PROVIDERS: ATTEND Physician Assistant | DX: Z47.1 Aftercare following joint replacement surgery (principal); M25.461 Effusion, right knee; Z96.651 Presence of right artificial knee joint ==

== ENCOUNTER → 2017-09-04 | Outpatient (CLI) | payer OTHER | LOC: BMCIMAGING 09:52 | PROVIDERS: ATTEND Orthopaedic Surgery | DX: Z09 Encounter for follow-up examination after completed treatment for conditions other than malignant neoplasm (principal) ==

== ENCOUNTER → 2017-12-04 | Outpatient (CLI) | payer OTHER | LOC: BMCIMAGING 09:23 | PROVIDERS: ATTEND Orthopaedic Surgery | DX: Z47.1 Aftercare following joint replacement surgery (principal); Z96.651 Presence of right artificial knee joint ==

== ENCOUNTER → 2018-03-27 | Outpatient (CLI) | payer OTHER | LOC: BMCIMAGING 14:53 | PROVIDERS: ATTEND Orthopaedic Surgery | DX: Z47.1 Aftercare following joint replacement surgery (principal); Z96.651 Presence of right artificial knee joint ==

== ENCOUNTER → 2018-04-25 | Outpatient (CLI) | payer OTHER | LOC: FIMAGING 09:43 | PROVIDERS: ATTEND Physician Assistant | DX: M25.512 Pain in left shoulder (principal); M67.922 Unspecified disorder of synovium and tendon, left upper arm; M67.912 Unspecified disorder of synovium and tendon, left shoulder ==

== ENCOUNTER → 2018-06-04 | Outpatient (CLI) | payer OTHER | LOC: BMCIMAGING 10:07 | PROVIDERS: ATTEND Orthopaedic Surgery | DX: Z09 Encounter for follow-up examination after completed treatment for conditions other than malignant neoplasm (principal); Z96.651 Presence of right artificial knee joint ==